=== PATIENT | male | born 1995 | race Two or more races ===

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

== ENCOUNTER 2017-01-24 13:09 | Emergency (ER) | payer OTHER ==
[~2017-01-24] VITALS: Ht 175.3 cm; Wt 68.0 kg
[2017-01-24] MEDS ORDERED: ADVI200T PO (13:15)
[2017-01-24] MEDS ORDERED: NORCO, ANEXSIA 5/325MG TABLET (HYDROcodone/ACETAMINOPHEN) PO ONE (13:45)
--- NOTE | 2017-01-24 14:42 | REP ---
Clinical: Trauma. Technique: AP, lateral, bilateral oblique views right foot. Findings: The osseous structures and joint spaces are intact and normal. There is no evidence for acute fracture or dislocation. Surrounding soft tissues are unremarkable. No subcutaneous emphysema or radiodense foreign body. Impression: Normal examination. No acute fracture or dislocation. Signed by Adan More MD 01/24/2017 02:34 P
[2017-01-24] MEDS ORDERED: NAPR500T PO (14:45)
[2017-01-24 14:56] VITALS: BP 126/66
== END 2017-01-24 15:17 | disposition home or self-care (01) ==
LOC: M ED 13:54
DX: S93.611A Sprain of tarsal ligament of right foot, initial encounter (principal); W19.XXXA Unspecified fall, initial encounter; Y92.410 Unspecified street and highway as the place of occurrence of the external cause; Y93.89 Activity, other specified; Y99.9 Unspecified external cause status

== ENCOUNTER 2017-05-27 14:24 | Emergency (ER) | payer OTHER ==
[~2017-05-27] VITALS: Ht 175.3 cm; Wt 81.8 kg
[~2017-05-27 14:24] MED LIST changes: +ADVI200T PO; +NAPR500T PO
[2017-05-27] MEDS ORDERED: ZYRT10TA2 PO (17:15)
[2017-05-27] MEDS ORDERED: SUDA30TA PO (17:15)
[2017-05-27] MEDS ORDERED: FLON1SPR (17:15)
[2017-05-27 17:39] VITALS: BP 127/81
== END 2017-05-27 17:40 | disposition home or self-care (01) ==
LOC: M ED 14:24
DX: H65.191 Other acute nonsuppurative otitis media, right ear (principal); J30.9 Allergic rhinitis, unspecified

== ENCOUNTER 2017-05-29 14:02 | Emergency (ER) | payer OTHER ==
[~2017-05-29] VITALS: Ht 177.8 cm; Wt 81.8 kg
[~2017-05-29 14:02] MED LIST changes: +FLON1SPR; +SUDA30TA PO; +ZYRT10TA2 PO
[2017-05-29 14:12] VITALS: BP 136/72
== END 2017-05-29 17:51 | disposition home or self-care (01) ==
LOC: M ED 14:02
DX: R45.1 Restlessness and agitation (principal)

== ENCOUNTER → 2017-06-11 | Outpatient (REF) | payer OTHER | LOC: M SFHCPLAZ 10:21 | PROVIDERS: ATTEND Family Medicine | DX: Z11.3 Encounter for screening for infections with a predominantly sexual mode of transmission (principal); R30.0 Dysuria ==

== ENCOUNTER 2017-08-06 19:18 | Emergency (ER) | payer MEDICAID, OTHER ==
[~2017-08-06] VITALS: Ht 175.3 cm; Wt 81.8 kg
[2017-08-06 20:49] VITALS: BP 122/56
== END 2017-08-06 20:50 | disposition home or self-care (01) ==
LOC: M ED 19:18
DX: H92.03 Otalgia, bilateral (principal); Z72.0 Tobacco use

== ENCOUNTER → 2017-08-13 | Outpatient (CLI) | payer OTHER ==
--- NOTE | 2017-08-14 08:16 | REP ---
SCROTAL ULTRASOUND: CLINICAL: Scrotal pain. TECHNIQUE: Real-time dorado scale and color Doppler evaluation using linear high frequency transducer. COMPARISON: 11/18/2016. FINDINGS: A few scattered microcalcifications are appreciated and nonspecific. The testicles and epididymi are otherwise normal in contour, size, echogenicity and vascularity without evidence for torsion, testicular mass lesion, or infection/inflammatory process. Small left hydrocele is again noted and unchanged. 4 mm right epididymal head cyst remains stable. No evidence for varicoceles based on current examination. Right testicle measures 4.7 x 2.3 x 2.8 cm. Left testicle measures 4.7 x 2.6 x 3.0 cm. IMPRESSION: 1. Essentially stable examination when compared to prior examination. 2. A few scattered microcalcifications noted bilaterally and likely insignificant although urology consultation may be warranted. A small left hydrocele appears simple and unchanged. 3. Previously noted possible early varicoceles not identified on current examination. Signed by Aadn More MD 08/15/2017 07:57 A
== END ==
LOC: M RAD 10:22
PROVIDERS: ATTEND Nurse Practitioner Women's Health
DX: N50.819 Testicular pain, unspecified (principal)

== ENCOUNTER → 2018-05-27 | Outpatient (REF) | payer OTHER | LOC: M LAB REF 13:32 | DX: R19.7 Diarrhea, unspecified (principal); R10.30 Lower abdominal pain, unspecified ==

== ENCOUNTER → 2018-06-03 | Outpatient (REF) | payer OTHER ==
[2018-06-03 19:07] LABS: APPEARANCE, URINE CLEAR (CLEAR); BACTERIA, URINE AUTO NEGATIVE (NEGATIVE); BILIRUBIN, URINE AUTO NEGATIVE (NEGATIVE); BLOOD, URINE BLOOD 1+ (NEGATIVE); COLOR, URINE STRAW (YELLOW); GLUCOSE, URINE (UA) AUTO NEGATIVE (NEGATIVE); KETONE, URINE AUTO NEGATIVE (NEGATIVE); LEUKOCYTE ESTERASE, URINE AUTO NEGATIVE (NEGATIVE); NITRITE, URINE AUTO NEGATIVE (NEGATIVE); PROTEIN, URINE AUTO NEGATIVE (NEGATIVE); RBC, URINE AUTO 0 /HPF (0-3); SQUAMOUS EPITHELIAL CELL UR AU 0 /HPF (0-6); UROBILINOGEN, URINE AUTO 0.2 mg/dL (0.0-2.0); WBC, URINE AUTO 0 /HPF (0-3)
== END ==
LOC: M SMT 16:44
DX: R31.29 Other microscopic hematuria (principal)
CPT/HCPCS: 81001

== ENCOUNTER → 2018-06-05 | Outpatient (CLI) | payer OTHER | LOC: M SMT 13:23 | DX: N50.819 Testicular pain, unspecified (principal); N43.41 Spermatocele of epididymis, single | CPT/HCPCS: 76870 ==

== ENCOUNTER 2019-03-09 15:25 | Emergency (ER) | payer OTHER ==
[~2019-03-09] VITALS: Ht 175.3 cm; Wt 97.7 kg
[~2019-03-09 15:25] MED LIST changes: +NAPR-837 PO; -NAPR500T PO; +ZYRT10CA5 PO; -ZYRT10TA2 PO
[2019-03-09 17:15] LABS: APPEARANCE, URINE HAZY (CLEAR); BILIRUBIN, URINE AUTO NEGATIVE (NEGATIVE); BLOOD, URINE BLOOD NEGATIVE (NEGATIVE); COLOR, URINE YELLOW (YELLOW); GLUCOSE, URINE (UA) AUTO NEGATIVE (NEGATIVE); KETONE, URINE AUTO NEGATIVE (NEGATIVE); LEUKOCYTE ESTERASE, URINE AUTO NEGATIVE (NEGATIVE); NITRITE, URINE AUTO NEGATIVE (NEGATIVE); PROTEIN, URINE AUTO NEGATIVE (NEGATIVE); RBC, URINE AUTO 8 /HPF (0-3); SPECIFIC GRAVITY URINE AUTO 1.031 (1.002-1.035); UROBILINOGEN, URINE AUTO 0.2 mg/dL (0.0-2.0); WBC, URINE AUTO 0 /HPF (0-3)
[2019-03-09 17:16] LABS: AMORPHOUS SEDIMENT SMALL (NEGATIVE); BACTERIA, URINE AUTO 1+ (NEGATIVE); MUCUS, URINE MODERATE (NEGATIVE); SQUAMOUS EPITHELIAL CELL UR AU 0 /HPF (0-6)
[2019-03-09 17:28] VITALS: BP 121/68
--- NOTE | 2019-03-09 19:39 | REP ---
SCROTAL ULTRASOUND: Real-time sonographic evaluation of the scrotum and contents were performed. The testicles are normal in size and echotexture, right testicle measuring 4.9 x 2.5 x 2.8 cm and left testicle 4.7 x 2.3 x 2.2 cm. There are tiny calcifications in both testicles. No testicular mass or torsion is seen. Blood flow is seen in each testicle with duplex Doppler evaluation, RI right testicle 0.41 and left testicle 0.42. Cyst in the right epididymis measures 4 mm. There is a small varicocele. IMPRESSION: No testicular mass or torsion. Small left varicocele. Tiny calcifications in both testicles. This may indicate microlithiasis. Recommend annual screening ultrasound of the testicles. Electronically Signed by Richard Healy MD 03/10/2019 04:17 P
--- NOTE | 2019-03-09 19:40 | REP ---
BILATERAL INGUINAL ULTRASOUND: Real-time sonographic evaluation of the inguinal regions were performed at rest and with Valsalva maneuver bilaterally. There is no evidence of inguinal hernia. No fluid collection is seen. There is no cystic or solid mass. IMPRESSION: Negative inguinal ultrasound with no evidence of hernia. Electronically Signed by Richard Healy MD 03/10/2019 04:17 P
[2019-03-09 20:24] LABS: CHLAMYDIA DNA AMPLIFICATION NEGATIVE (NEGATIVE); GC DNA AMPLIFICATION NEGATIVE (NEGATIVE)
--- NOTE | 2019-03-15 11:50 | ED PDOC ---
Post-Departure Follow-Up dr davila and dr sparkle reece faxed formal report of scrotal us for fu Lauren Harmon MD Mar 15, 2019 11:50
== END 2019-03-09 17:54 | disposition home or self-care (01) ==
LOC: M ED 17:35
DX: I86.1 Scrotal varices (principal); N50.89 Other specified disorders of the male genital organs; Z91.041 Radiographic dye allergy status

== ENCOUNTER → 2023-10-08 | Outpatient (CLI) | payer OTHER | LOC: M OUTALCOH 07:31 | PROVIDERS: ATTEND Psychiatry & Neurology Psychiatry | DX: Z13.9 Encounter for screening, unspecified (principal) ==

== ENCOUNTER → 2023-10-14 | Outpatient (CLI) | payer OTHER ==
[2023-10-14 16:09] LABS: HEMATOCRIT 42.9 % (42.0-52.0); HEMOGLOBIN 14.6 g/dl (13.5-17.5); MEAN CORPUSCULAR HEMOGLOBIN 30.1 pg (27.0-33.0); MEAN CORPUSCULAR VOLUME 88.5 fl (80.0-96.0); PLATELET COUNT, AUTOMATED 307 10^3/uL (150-450); RED BLOOD COUNT 4.85 10^6/uL (4.30-6.10); WHITE BLOOD COUNT 6.8 10^3/uL (4.0-10.0)
[2023-10-14 17:17] LABS: ALBUMIN 4.5 G/DL (3.2-5.2); BILIRUBIN,DIRECT 0.2 MG/DL (<0.4); BILIRUBIN,TOTAL 0.5 MG/DL (0.3-1.2); TOTAL PROTEIN 7.3 G/DL (5.7-8.2)
== END ==
LOC: M PLALAB 12:51
PROVIDERS: ATTEND Psychiatry & Neurology Psychiatry
DX: F43.23 Adjustment disorder with mixed anxiety and depressed mood (principal)

== ENCOUNTER 2023-11-05 08:40 | Outpatient (RCR) | payer OTHER | END 2023-11-06 | LOC: M OUTALCOH 08:40 | PROVIDERS: ATTEND Psychiatry & Neurology Psychiatry | DX: F12.20 Cannabis dependence, uncomplicated (principal) ==

== ENCOUNTER → 2023-11-05 | Outpatient (CLI) | payer OTHER | LOC: M PLALAB 10:33 | PROVIDERS: ATTEND Psychiatry & Neurology Psychiatry | DX: F43.23 Adjustment disorder with mixed anxiety and depressed mood (principal) ==

== ENCOUNTER → 2023-12-17 | Outpatient (REF) | payer OTHER ==
[2023-12-17 15:29] LABS: HIV 1&2 SCREEN NEGATIVE (NEGATIVE)
[2023-12-17 16:11] LABS: Trichomonas vaginalis (AMP) NOT DETECTED (NEGATIVE)
[2023-12-17 16:34] LABS: GC DNA AMPLIFICATION NEGATIVE (NEGATIVE)
== END ==
LOC: M LAB REF 14:12
PROVIDERS: ATTEND Internal Medicine
DX: Z72.53 High risk bisexual behavior (principal)

== ENCOUNTER → 2025-03-23 | Outpatient (CLI) | payer OTHER ==
[2025-03-23 13:48] LABS: PLATELET COUNT, AUTOMATED 292 10^3/uL (150-450)
[2025-03-23 14:15] LABS: ALT/SGPT 31 U/L (7.0-40); AST/SGOT 25 U/L (<34); CALCIUM LEVEL 9.4 MG/DL (8.5-10.1); CARBON DIOXIDE LEVEL 28 MMOL/L (20-31); CHLORIDE LEVEL 103 MMOL/L (98-107); CREATININE FOR GFR 0.85 MG/DL (0.70-1.30); GLOMERULAR FILTRATION RATE > 90.0 (>60); POTASSIUM SERUM 4.3 MMOL/L (3.5-5.1); SODIUM LEVEL 141 MMOL/L (136-145)
[2025-03-23 14:18] LABS: TOTAL 25(OH) VITAMIN D 34.7 NG/ML (20.0-100.0)
== END ==
LOC: M EKG 12:56
PROVIDERS: ATTEND Nurse Practitioner Psychiatric/Mental Health
DX: F90.0 Attention-deficit hyperactivity disorder, predominantly inattentive type (principal)

== ENCOUNTER 2025-04-24 12:26 | Emergency (ER) | payer OTHER ==
[~2025-04-24] VITALS: Ht 172.7 cm; Wt 84.7 kg
[2025-04-24] MEDS ORDERED: OMEP-173 PO (12:37)
[2025-04-24 13:33] LABS: PLATELET COUNT, AUTOMATED 280 10^3/uL (150-450)
[2025-04-24 14:02] LABS: ETHYL ALCOHOL (ETHANOL) 0.003 % (0.000-0.010)
[2025-04-24 14:03] LABS: ALT/SGPT 14 U/L (7.0-40); AST/SGOT 15 U/L (<34); CALCIUM LEVEL 9.0 MG/DL (8.5-10.1); CARBON DIOXIDE LEVEL 25 MMOL/L (20-31); CHLORIDE LEVEL 108 MMOL/L (98-107); CREATININE FOR GFR 0.88 MG/DL (0.70-1.30); GLOMERULAR FILTRATION RATE > 90.0 (>60); POTASSIUM SERUM 4.1 MMOL/L (3.5-5.1); SALICYLATE LEVEL < 3.0 MG/DL (<30); SODIUM LEVEL 145 MMOL/L (136-145)
[2025-04-24] MEDS ORDERED: HOME MED LIST COMPLETE! XX SCH (14:05)
[2025-04-24 14:08] LABS: AMPHETAMINES LEVEL URINE NEGATIVE (NEGATIVE); BARBITURATES URINE NEGATIVE (NEGATIVE); BENZODIAZEPINES URINE NEGATIVE (NEGATIVE); COCAINE METABOLITE URINE NEGATIVE (NEGATIVE); METHADONE URINE NEGATIVE (NEGATIVE); OPIATES URINE NEGATIVE (NEGATIVE); PHENCYCLIDINE URINE NEGATIVE (NEGATIVE)
[2025-04-24 14:09] LABS: CANNABINOIDS URINE POSITIVE (NEGATIVE)
[2025-04-24 16:56] VITALS: BP 129/68; TEMP 98.4; O2SAT 99
== END 2025-04-24 17:50 | disposition home or self-care (01) ==
LOC: M ED 12:26
DX: Z04.6 Encounter for general psychiatric examination, requested by authority (principal); F32.A Depression, unspecified; F41.9 Anxiety disorder, unspecified; Z91.041 Radiographic dye allergy status